=== PATIENT | male | born 1990 | race African-American/Black ===

== ENCOUNTER 2021-02-07 06:45 | Inpatient (IN) | payer MEDICAID ==
[~2021-02-07] VITALS: Ht 180.3 cm; Wt 95.0 kg
[2021-02-07] MEDS ORDERED: ZOLPIDEM TARTRATE 10 MG TABLET PO PRN (10:30)
[2021-02-07] MEDS ORDERED: LORazepam 2 MG TABLET PO PRN (10:30)
[2021-02-07] MEDS ORDERED: HALOPERIDOL 5 MG TABLET PO PRN (10:30)
[2021-02-07 12:40] VITALS: BP 121/69
[2021-02-07] MEDS: IBUPROFEN 400 MG TABLET PO PRN (13:50)
[2021-02-07 16:21] VITALS: BP 110/60
[2021-02-07] MEDS: BACITRACIN 28 GM OINTMENT TP SCH (16:35)
[2021-02-08 02:23] VITALS: BP 119/67
[2021-02-08 05:33] VITALS: BP 142/69
[2021-02-08] MEDS: IBUPROFEN 400 MG TABLET PO PRN ×2 (05:36→18:50)
[2021-02-08] MEDS ORDERED: MAG HYDROX/AL HYDROX/SIMETH ES 30 ML SUSPENSION UDCUP PO PRN (07:30)
[2021-02-08] MEDS ORDERED: CloNIDine HCL 0.1 MG TABLET PO PRN (07:30)
[2021-02-08] MEDS ORDERED: ACETAMINOPHEN 325 MG TABLET PO PRN (07:30)
[2021-02-08] MEDS ORDERED: NICOTINE 14 MG/24 HOUR PATCH TD PRN (07:30)
[2021-02-08] MEDS ORDERED: PETROLATUM,WHITE 28 GM JELLY TP PRN (07:30)
[2021-02-08] MEDS ORDERED: ALBUTEROL SULFATE HFA 90 MCG/PUFF 8 GM INHALER IH PRN (07:30)
[2021-02-08] MEDS ORDERED: ONDANSETRON HCL 4 MG TABLET PO PRN (07:30)
[2021-02-08] MEDS ORDERED: MAGNESIUM HYDROXIDE SUSPENSION 30 ML UDCUP PO PRN (07:30)
[2021-02-08] MEDS ORDERED: GuaiFENesin/D-METHORPHAN [SUGAR-FREE] 200-20MG/10 ML SYRUP UDCUP PO PRN (07:30)
[2021-02-08] MEDS ORDERED: DOCUSATE SODIUM 100 MG CAPSULE PO PRN (07:30)
[2021-02-08] MEDS ORDERED: LOPERAMIDE HCL 2 MG CAPSULE PO PRN (07:30)
[2021-02-08] MEDS ORDERED: IBUPROFEN 400 MG TABLET PO PRN (07:30)
[2021-02-08 07:38] LABS: BASOPHILS % (AUTO) 0.3 % (0.0-2.0); EOSINOPHILS % (AUTO) 0.7 % (1.0-6.0); HEMATOCRIT 39.7 % (41-53); HEMOGLOBIN 13.3 g/dL (13.5-17.5); LYMPHOCYTES # (AUTO) 1.6 K/uL (1.0-4.8); LYMPHOCYTES % (AUTO) 22.3 % (22.0-44.0); MEAN CORPUSCULAR HEMOGLOBIN 28.3 pg (26.0-34.0); MEAN CORPUSCULAR HGB CONC 33.4 G/dL (31.0-37.0); MEAN CORPUSCULAR VOLUME 85 fL (80-100); MONOCYTES # (AUTO) 0.7 K/uL (0.1-1.0); MONOCYTES % (AUTO) 9.3 % (2.0-9.0); NEUTROPHILS # (AUTO) 4.8 K/uL (1.8-7.7); NEUTROPHILS % (AUTO) 67.4 % (40.0-70.0); PLATELET COUNT (AUTO) 241 K/uL (150-450); RED BLOOD CELL COUNT(AUTO) 4.68 MIL/uL (4.50-5.90); RED CELL DISTRIBUTION WIDTH 13.6 % (11.5-14.5)
[2021-02-08 07:50] LABS: HEMOGLOBIN A1C 5.7 % (3.8-5.6)
[2021-02-08 07:51] LABS: CALCIUM, TOTAL 8.2 mg/dL (8.8-10.5); CHLORIDE 104 mmol/L (98-107); GLOMERULAR FILTR. RATE CALC > 60 mL/min (>60); GLUCOSE,RANDOM 93 mg/dL (70-110); POTASSIUM 4.5 mmol/L (3.5-5.1); SODIUM SERUM 137 mmol/L (136-145); UREA NITROGEN, BLOOD 11 mg/dL (7-18)
[2021-02-08 08:26] LABS: ALANINE AMINOTRANSFERASE 112 U/L (12-78); ALBUMIN 2.8 g/dL (3.4-5.0); ALKALINE PHOSPHATASE 116 U/L (46-116); ANION GAP 11 mmol/L (8-16); ASPARTATE AMINOTRANSFERASE 40 U/L (15-37); BILIRUBIN,TOTAL 0.3 mg/dL (0.1-1.0); CARBON DIOXIDE 22 mmol/L (22-29); CHOLESTEROL 91 mg/dL (131-200); FREE T4 (FREE THYROXINE) 0.89 ng/dL (0.76-1.46); HDL CHOLESTEROL 30 mg/dL (40-60); LDL CHOL (CALC.) 52 mg/dL (0-130); THYROID STIMULATING HORMONE 1.03 uIU/mL (0.36-3.74); TOTAL PROTEIN, SERUM 6.6 g/dL (6.4-8.2); TRIGLYCERIDES 46 mg/dL (15-150)
[2021-02-08] MEDS: BACITRACIN 28 GM OINTMENT TP SCH ×2 (08:48→16:40)
[2021-02-08 09:12] VITALS: BP 126/83
[2021-02-08 16:22] VITALS: BP 136/79
[2021-02-08] MEDS ORDERED: LURASIDONE HCL 40 MG TABLET PO SCH (17:00)
[2021-02-09 00:29] VITALS: BP 101/62
[2021-02-09] MEDS ORDERED: FERROUS SULFATE 325 MG EC TABLET PO SCH (07:00)
[2021-02-09 08:24] VITALS: BP 134/83
[2021-02-09] MEDS ORDERED: FLUoxetine HCL 20 MG CAPSULE PO SCH (09:00)
[2021-02-09] MEDS: BACITRACIN 28 GM OINTMENT TP SCH (09:17)
[2021-02-09] MEDS ORDERED: LURA40TA2 PO (09:58)
[2021-02-09] MEDS ORDERED: FLUO20CA36 PO (09:58)
== END 2021-02-09 12:41 | disposition home or self-care (01) | DRG 753 ==
LOC: B2S 11:06
DX: F31.5 Bipolar disorder, current episode depressed, severe, with psychotic features (principal); D64.9 Anemia, unspecified; F12.10 Cannabis abuse, uncomplicated; F15.10 Other stimulant abuse, uncomplicated; Z59.0 Homelessness; F10.10 Alcohol abuse, uncomplicated; Z20.822 Contact with and (suspected) exposure to COVID-19
CPT/HCPCS: 80053; 80061; 83036; 84436; 84439; 84443; 85025; G0480